=== PATIENT | female | born 1990 | race Caucasian/White ===

== ENCOUNTER 2017-12-02 07:37 | Emergency (ER) | payer SELFPAY, MEDICAID ==
[2017-12-02 08:48] LABS: NEGATIVE OBC STREP NEG; POSITIVE OBC STREP POS
== END 2017-12-02 08:03 | disposition home or self-care (01) ==
LOC: ER 07:37
DX: J06.9 Acute upper respiratory infection, unspecified (principal); Z88.8 Allergy status to other drugs, medicaments and biological substances
CPT/HCPCS: 87070; 87880; 99284

== ENCOUNTER 2018-01-26 17:39 | Emergency (ER) | payer OTHER | END 2018-01-26 19:54 | disposition home or self-care (01) | LOC: ER 19:54 | DX: S93.602A Unspecified sprain of left foot, initial encounter (principal); Z88.8 Allergy status to other drugs, medicaments and biological substances; X50.1XXA Overexertion from prolonged static or awkward postures, initial encounter; Y93.89 Activity, other specified; Y92.89 Other specified places as the place of occurrence of the external cause; Y99.8 Other external cause status | CPT/HCPCS: 73630; 99284 ==

== ENCOUNTER 2018-03-12 20:59 | Emergency (ER) | payer OTHER ==
[2018-03-12] MEDS: PROCHLORPERAZINE 10 MG/2 ML VIAL. IV (21:58)
[2018-03-12 22:00] LABS: URINE HCG POC HCG NEGATIVE (Negative)
[2018-03-12 22:01] LABS: BILIRUBIN,URINE NEGATIVE (NEG); CLARITY,URINE CLEAR; COLOR,URINE YELLOW; GLUCOSE,URINE NEGATIVE (NEG); NITRITE,URINE NEGATIVE (NEG); PROTEIN,URINE NEGATIVE (NEG-TRACE); UROBILINOGEN,URINE 0.2 mg/dL (0.2 mg/dL)
[2018-03-12 22:08] LABS: BACTERIA,URINE FEW /HPF (0-FEW); RBC,URINE 0 /HPF (0-2); SQUAMOUS EPITHELIAL CELL,UR MOD /LPF; WBC,URINE 0 /HPF (0-4)
[2018-03-12] MEDS: IV NORMAL SALINE 1000ML BAG 1,000 ML IV (22:28)
[2018-03-12] MEDS: IPRATRPIUM/ALBUTEROL 0.5/2.5MG 3 ML NEBU. NEB (22:54)
[2018-03-12] MEDS: methylPREDNISolone SOD SUCC PF 125 MG/2 ML VIAL. IV (23:06)
[2018-03-12] MEDS: MORPHINE SULFATE 4 MG/ML DISP.SYRIN. IV (23:06)
== END 2018-03-12 23:34 | disposition home or self-care (01) ==
LOC: ER 20:59
DX: R51 Headache (principal); R05 Cough; R11.2 Nausea with vomiting, unspecified; J45.909 Unspecified asthma, uncomplicated
CPT/HCPCS: 70450; 72125; 81001; 81025; 94640; 96361; 96374; 96375; 99285-25; J0780; J2270; J2930; J7030; J7620

== ENCOUNTER 2019-09-13 17:53 | Emergency (ER) | payer OTHER ==
[~2019-09-13] VITALS: Ht 165.1 cm; Wt 108.9 kg
[~2019-09-13 17:53] MED LIST: ALBU2.5V8 INH; AMOX1TAB61 PO; BENZ100C PO; IBUP-1060 PO; PROC10TA57 PO
[2019-09-13 18:05] VITALS: BP 136/62
[2019-09-13] MEDS ORDERED: OSEL75CA PO (18:25)
[2019-09-13] MEDS ORDERED: ONDA4TAB12 PO (18:25)
--- NOTE | 2019-09-13 18:26 | PHYS DOC ---
Past Medical History Past Medical History: Asthma (PRANEETH PERES APRN) Past Surgical History: , Tonsillectomy (PRANEETH PERES APRN) Alcohol Use: None Drug Use: None (PRANEETH PERES APRN) Attending Signature I have participated in the care of this patient and I have reviewed and agree with all pertinent clinical information above including history, exam, and recommendations. (JOHNY MARES MD) Adult General Chief Complaint Chief Complaint: COUGH HPI HPI Patient is a 28 year old female who presents with headache, loss of appetite, nausea, vomiting, sore throat, runny nose, cough that started at 1 AM this morning. Her only history is asthma. (PRANEETH PERES APRN) Review of Systems Review of Systems Constitutional: Reports fever or chills and body aches. Eyes: Denies change in visual acuity, redness, or eye pain [] HENT: Reports nasal congestion, sore throat, and runny nose. Respiratory: Reports cough. Denies shortness of breath. Cardiovascular: No additional information not addressed in HPI [] GI: Reports nausea and vomiting. Denies abdominal pain, bloody stools or diarrhea [] : Denies dysuria or hematuria [] Musculoskeletal: Denies back pain or joint pain [] Integument: Denies rash or skin lesions [] Neurologic: Reports headache, denies focal weakness or sensory changes [] Endocrine: Denies polyuria or polydipsia [] Complete systems were reviewed and found to be within normal limits, except as documented in this note. (PRANEETH PERES APRN) Allergies Allergies Allergies Coded Allergies Type Severity Reaction Last Updated Verified diphenhydramine Allergy Intermediate 06/29/15 No (JOHNY MARES MD) Physical Exam Physical Exam Constitutional: Well developed, well nourished, no acute distress, non-toxic appearance. [] HENT: Normocephalic, atraumatic, bilateral external ears normal, bilateral tympanic membranes are pearly cruz, oropharynx moist, no oral exudates, nose turbinates are inflamed. Eyes: PERRLA, EOMI, conjunctiva normal, no discharge. [] Neck: Normal range of motion, no tenderness, supple, no stridor. [] Cardiovascular:Heart rate regular rhythm, no murmur [] Lungs & Thorax: Bilateral breath sounds clear to auscultation [] Abdomen: Bowel sounds normal, soft, no tenderness, no masses, no pulsatile masses. [] Skin: Warm, dry, no erythema, no rash. [] Neurologic: Alert and oriented X 3, normal motor function, normal sensory function, no focal deficits noted. [] Psychologic: Affect normal, judgement normal, mood normal. [] (PRANEETH PERES APRN) Current Patient Data Vital Signs Vital Signs Date Time Temp Pulse Resp B/P (MAP) Pulse Ox O2 Delivery O2 Flow Rate FiO2 09/13/19 18:05 99.2 104 12 136/62 (86) 96 Room Air 99.2 (JOHNY MARES MD) EKG EKG [] (PRANEETH PERES APRN) Radiology/Procedures Radiology/Procedures [] (PRANEETH PERES APRN) Course & Med Decision Making Course & Med Decision Making Pertinent Labs and Imaging studies reviewed. (See chart for details) The patient appears to have the Flu clinically. Discussed with patient the importance of drinking plenty of fluids. I also discussed the importance of rest. It was discussed with the patient that she is contagious and to stay away from others until it has been a week since the start of her symptoms. Discussed with the patient that she can take Zyrtec per label instructions for runny nose. Also discussed the proper control of fever by rotating Tylenol and Ibuprofen at home. Will give the patient Decadron in the ER for symptom control. Will also prescribe Zofran for nausea. Will also prescribe Tamiflu. (PRANEETH PERES APRN) Dragon Disclaimer Dragon Disclaimer This electronic medical record was generated, in whole or in part, using a voice recognition dictation system. (PRANEETH PERES APRN) Departure Departure Impression: Primary Impression: Viral syndrome Disposition: HOME, SELF-CARE Condition: STABLE Referrals: LATOSHA MANDUJANO (PCP) Patient Instructions: Influenza A (H1N1) Additional Instructions: Thank you for visiting [facility]. We appreciate you trusting us with your care. If any additional problems come up don't hesitate to return to visit us. Please follow up with your primary care provider so they can plan additional care if needed and know about the problem that you had. If symptoms worsen come back to the Emergency Department. Any concerning symptoms that start such as chest pain, shortness of air, weakness or numbness on one side of the body, running high fevers or any other concerning symptoms return to the ER. Please fill your medications at any pharmacy and follow the prescription instructions. Please drink plenty of fluids. If unable to keep fluids down please return to ER. Please get Tylenol and Ibuprofen over the counter. Give each medication every 6 hours as directed by the medication labels. In order to utilize the peak of the medications stagger the medications to where the child is getting one of the medications every 3 hours. For example if you give Ibuprofen at 3 PM, you then give Tylenol at 6 PM and Ibuprofen again at 9 PM, and then Tylenol at midnight. Please get Zyrtec over the counter and take per label instructions for runny nose. Scripts Oseltamivir Phosphate (TAMIFLU) 75 Mg Capsule 75 MG PO BID for FLU for 5 Days, #10 TAB 0 Refills Prov: PRANEETH PERES APRN 09/13/19 Ondansetron (ONDANSETRON ODT) 4 Mg Tab.rapdis 1 TAB PO PRN Q6-8HRS PRN for NAUSEA, #16 TAB Prov: PRANEETH PERES APRN 09/13/19 PRANEETH PERES APRN Sep 13, 2019 18:25 JOHNY MARES MD Sep 13, 2019 18:27
[2019-09-13] MEDS ORDERED: DEXAMETHASONE 4 MG TABLET PO STA (18:38)
== END 2019-09-13 18:34 | disposition home or self-care (01) ==
LOC: ER 17:53
DX: B34.9 Viral infection, unspecified (principal); R63.0 Anorexia; R09.89 Other specified symptoms and signs involving the circulatory and respiratory systems; R05 Cough; J45.909 Unspecified asthma, uncomplicated; Z90.89 Acquired absence of other organs; Z98.890 Other specified postprocedural states
CPT/HCPCS: 99283; J8540